=== PATIENT | female | born 1995 | race Two or more races ===

== ENCOUNTER 2017-09-20 14:01 | Emergency (ER) | payer OTHER ==
[~2017-09-20] VITALS: Ht 165.1 cm; Wt 49.9 kg
[~2017-09-20 14:01] MED LIST: MOTRIN800 MG PO
== END 2017-09-20 16:58 | disposition home or self-care (01) ==
LOC: ER 14:01
DX: S20.222A Contusion of left back wall of thorax, initial encounter (principal); S20.221A Contusion of right back wall of thorax, initial encounter; V49.9XXA Car occupant (driver) (passenger) injured in unspecified traffic accident, initial encounter; Y93.89 Activity, other specified; Y92.488 Other paved roadways as the place of occurrence of the external cause; Y99.8 Other external cause status